=== PATIENT | female | born 1980 | race Caucasian/White ===

== ENCOUNTER → 2018-04-30 17:51 | Outpatient (CLI) | payer OTHER, SELFPAY ==
[2018-05-07 11:54] LABS: HPV APTIMA, High Risk Negative (Negative)
== END ==
PROVIDERS: Referring Provider Obstetrics & Gynecology; Visit Provider Obstetrics & Gynecology
DX: Z12.4 Encounter for screening for malignant neoplasm of cervix (principal)
CPT/HCPCS: 88175; G0145

== ENCOUNTER → 2018-05-22 | Outpatient (CLI) | payer OTHER, SELFPAY ==
[2018-05-22 20:45] LABS: Chlamydia Trachomatis by PCR Negative (Negative); Neisserai gonorrhoeae by PCR Negative (Negative); Probe Check PASS; Sample Adequacy Control PASS; Specimen Processing Control PASS
== END | disposition home or self-care (01) ==
LOC: LABSPEC 16:37
PROVIDERS: Visit Provider Obstetrics & Gynecology
DX: Z11.3 Encounter for screening for infections with a predominantly sexual mode of transmission (principal)
CPT/HCPCS: 87491; 87591

== ENCOUNTER → 2020-02-17 | Outpatient (CLI) | payer OTHER, SELFPAY ==
[2020-02-22 18:39] LABS: HPV Reflexed? NOT INDICATED
== END | disposition home or self-care (01) ==
LOC: LABSPEC 15:32
PROVIDERS: Visit Provider Obstetrics & Gynecology
DX: Z12.4 Encounter for screening for malignant neoplasm of cervix (principal)
CPT/HCPCS: 88175; G0145

== ENCOUNTER → 2020-05-30 15:52 | Outpatient (CLI) | payer OTHER, SELFPAY ==
[2020-05-30 17:03] LABS: hCG Titer Quant., Serum < 1 mIU/mL (1-3)
== END ==
PROVIDERS: Visit Provider Student in an Organized Health Care Education/Training Program
DX: N92.5 Other specified irregular menstruation (principal)
CPT/HCPCS: 36415; 84702

== ENCOUNTER → 2022-07-17 | Outpatient (CLI) | payer OTHER, SELFPAY ==
[2022-07-17 11:37] LABS: Absolute Lymphocyte Count 1.43 X10^3/uL (0.83-4.51); Absolute Neutrophil Count 4.7 X10^3/uL (2.0-7.7); Basophil# 0.05 X10^3/uL; Basophil% 0.7 % (0-1); Eosinophil# 0.16 X10^3/uL; Eosinophils% 2.3 % (0-5); Hematocrit 38.5 % (37-47); Lymphocyte # 1.43 X10^3/ul (0.83-4.51); Lymphocyte % 20.9 % (19-41); Mean Corp Hgb Conc 33.8 g/dL (32-36); Mean Corpuscular Volume 94.8 fL (81-99); Mean Platelet Vol. 9.4 fl (6.2-12.0); Monocyte# 0.45 X10^3/uL; Monocyte% 6.6 % (0-10); NRBC Flagged by Analyzer 0 % (0-5); Neutrophil # 4.71 X10^3/uL (2.7-7.7); Neutrophil % 69.1 % (47-70); Platelet Count 292 K/mm3 (150-450); RBC Distribution Width CV 12.1 % (11.6-14.6); RBC Distribution Width SD 42.4 fl (35.1-43.9); Red Blood Count 4.06 M/mm3 (4.2-5.4); White Blood Count 6.8 K/mm3 (4.4-11.0)
[2022-07-17 11:58] LABS: hCG Titer Quant., Serum < 1 mIU/mL (1-3)
[2022-07-17 13:42] LABS: Estradiol 69.1 pg/mL; Luteinizing Hormone 2.1 mIU/mL; Prolactin 11.1 ng/mL; T4 Free Direct 0.88 ng/dL (0.76-1.46); Thyroid Stim Hormone (TSH) 2.68 uIU/mL (0.358-3.74)
== END | disposition home or self-care (01) ==
LOC: WOBLAB 10:30
PROVIDERS: Visit Provider Nurse Practitioner Women's Health
DX: N93.9 Abnormal uterine and vaginal bleeding, unspecified (principal)
CPT/HCPCS: 36415; 82670; 83001; 83002; 84146; 84439; 84443; 84702; 85025

== ENCOUNTER 2022-07-18 11:30 | Emergency (ER) | payer OTHER, SELFPAY ==
[2022-07-18 11:31] VITALS: BP 156/89; PULSE 62; RESP 18; TEMP 36.4; O2SAT 100; BMI 29.7
--- NOTE | 2022-07-18 11:57 | EDS_ITS ---
HPI HPI - Female History of Present Illness Chief Complaint: Vag Bleeding Informant: patient Bleeding Issue: Positive for Vaginal bleeding; Negative for Passing tissue Onset: Days Context: Gradual Onset Timing: Continuous Current Severity: Mild and Similar to period Maximum Severity: Spotting and Similar to period Associated Symptoms Associated Symptoms: Negative for Dysuria or Frequency Test: Positive and Negative Narrative Narrative: 41-year-old female no seen past medical or surgical history. Currently on no medications. Said her menstrual periods have been irregular for the last several months. This 1 was early and she has been bleeding for the last 10 days. Saw her [employer] office and saw the nurse practitioner yesterday they did labs her CBC was unremarkable with a normal hemoglobin hematocrit. And a negative test. States today she is has bleeding still and may have had dark stool also. Denies any dysuria. No fever. States she just feels off. Prior similar symptoms: No Recent Illness/Hospitalization: No PFSH PFSH Medical History Contact dermatitis due to poison jazmin Scabies Home Medications permethrin 5 % topical cream (Elimite) 1 applic topical .twice 2 doses #60 grams 11/28/20 [Rx Last Taken Unknown] prednisone 10 mg tablet 10 mg PO DAILY #30 tabs 10/23/21 [Rx Last Taken Unknown] Allergy/AdvReac Type Severity Reaction Status Date / Time No Known Allergies Allergy Verified 07/18/22 11:31 Social History Smoking Status: Never smoker ROS ROS ED ROS Narrative Vaginal bleeding. Review of Systems ROS Unobtainable: Denies due to encephalopathy Constitutional Constitutional ED: Denies chills or fever(s) Eyes Eyes: Denies blurry vision ENT ENT ED: Denies ear pain Cardiovascular Cardiovascular: Denies chest pain Respiratory/Chest Respiratory/Chest: Denies cough or dyspnea Gastrointestinal Gastrointestinal: Denies abdominal pain Genitourinary Genitourinary ED: Denies dysuria Musculoskeletal Musculoskeletal: Denies arthralgias Integumentary Denies abscess Neurologic Neurologic: Denies headache(s) Psychiatric Psychiatric: Denies anxiety Endocrine Endocrinology: Denies heat intolerance Hematologic/Lymphatic Hematologic/Lymphatic: Denies easy bleeding Allergic/Immunologic Allergic/Immunologic ED: Denies mouth swelling EXAM Physical Exam Narrative Exam Narrative: Well-appearing 41-year-old female. Vital signs stable afebrile. She does not look septic toxic or in any distress. Pulse ox 100% on room air no hypoxia. H EENT exam unremarkable. Moist extremities. Neck nontender no JVD. No lymphadenopathy. Lungs clear to auscultation. Heart regular rhythm no murmur. Abdomen soft nontender. Moving all 4 extremities. Calves are nontender that edema or cords. Neurologically she is awake alert with no focal motor deficits. Benign exam. Const Vital Signs: 07/18/22 11:31 Temperature 97.6 F L Temperature Source Temporal Pulse Rate 62 Respiratory Rate 18 Blood Pressure 156/89 H Blood Pressure Mean 111 Pulse Ox 100 Oxygen Delivery Method Room Air Positive well nourished and well developed; Negative for cachectic, contractures or unkempt General Appearance ED: well developed and NAD; Negative for unkempt, cachectic, contractures or pallor Nutritional Appearance: Negative for cachectic HEENT Reports moist mucous membranes Negative for trauma or tenderness Eyes PERRL and EOMs intact bilaterally General Eye ED: Negative for pale conjunctiva or scleral icterus Neck no lymphadenopathy, supple and no JVD General: Negative for other Thyroid: Negative for tender Lymph Lymphatic: Negative for other Chest Wall inspection of chest normal and palpation of chest normal Chest: Negative for other Resp normal respiratory effort and clear to auscultation bilaterally Effort and Inspection: Negative for pain with movement Auscultation: Negative for rales, rhonchi or wheezes Cardio regular rate, regular rhythm, S1 normal heart sound, no murmurs and no JVD GI normal to inspection, nondistended, normoactive bowel sounds, soft to palpation, non-tender, non-distended and no masses Auscultation: normoactive bowel sounds Palpation: Negative for tender, guarding or rigid Back/Spine no CVA tenderness General Back: Negative for CVA tenderness Cervical Spine: Negative for cervical spine tenderness Thoracic Spine / Upper Back: Negative for thoracic spinal tenderness Lumbar Spine / Lower Back: Negative for lumbar spinal tenderness Sacrum: Negative for other Extremity normal to inspection and full ROM General Extremety ED: Negative for edema or tenderness General Extremity: Negative for edema Neuro oriented x3 and CN's II-XII intact bilaterally Sensorium / Orientation: alert, oriented to person, oriented to place and oriented to time; Negative for confused, lethargic or stuporous Motor Exam: strength 5/5 throughout; Negative for general weakness Psych mental status grossly normal Appearance: Negative for unkempt Attitude: No agitated Speech: No other Mood & Affect: Negative for depressed, anxious or tearful Skin no rashes or lesions noted and no wounds General Skin Exam: Negative for jaundice or pallor Rashes: No rashes noted Trauma: Negative for other MDM MDM MDM Narrative Medical decision making narrative: 41-year-old female with vaginal bleeding malaise. Benign exam. She was seen by nurse practitioner [employer] office yesterday had unremarkable CBC negative test and normal thyroid test. I will obtain a CBC again today and a CMP. Repeat exam patient is doing well at 12:59 PM. She will be discharged home with outpatient follow-up with her [employer] office. They have a ultrasound scheduled tomorrow. History & Record Review Discussion w/independent historian: Patient Lab Data Attestation: I reviewed the patient's lab results. Lab results narrative: CBC unremarkable white count 7.1 H&H 12.9 and 30.6 same as yesterday basically. Platelets 284. Electrolytes show a gap of 3. Normal BUN and creatinine. Liver enzymes are normal. I also reviewed her labs from yesterday and there is no significant change. She had a negative test. Negative thyroid test. Labs: Laboratory Results - last 24 hr 07/18/22 07/18/22 12:00 12:00 WBC 7.1 RBC 4.15 L Hgb 12.9 Hct 38.6 MCV 93.0 MCH 31.1 MCHC 33.4 RDW Std Deviation 41.5 RDW Coeff of Megan 12.1 Plt Count 284 MPV 9.1 Immature Gran % (Auto) 0.400 Neut % (Auto) 64.4 Lymph % (Auto) 25.1 Campbell % (Auto) 7.3 Eos % (Auto) 1.8 Baso % (Auto) 1.0 Absolute Neuts (auto) 4.6 Absolute Lymphs (auto) 1.78 Nucleated RBC % 0 Sodium 138 Potassium 4.0 Chloride 109 H Carbon Dioxide 26.0 Anion Gap 3 L BUN 12 Creatinine 0.59 Estim Creat Clear Calc 110.63 Est GFR (MDRD) Af Amer 143 Est GFR (MDRD) Non-Af 118 BUN/Creatinine Ratio 20.3 H Glucose 95 Calcium 8.4 L Total Bilirubin 0.40 AST 20 ALT 28 Alkaline Phosphatase 82 Total Protein 6.7 Albumin 3.6 Globulin 3.1 Albumin/Globulin Ratio 1.2 Discharge Plan Triage Chief Complaint: Vag Bleeding ED Provider: Hemant Lopez Dx/Rx/DC Orders Clinical Impression: Abnormal vaginal bleeding Prescriptions: No Action permethrin [Elimite] 5 % cream 1 applic topical .twice Qty: 60 0RF Rx Instructions: apply neck and below leaving on for 8-14 hours w/ 1/2 of tube then wash off; repeat in 8-10 days prednisone 10 mg tablet 10 mg PO DAILY Qty: 30 0RF Rx Instructions: 4 tablets daily for 3 days, then 3 tablets daily for 3 days, then 2 tablets daily for 3 days, then 1 tablet daily for 3 days Primary Care Provider: Care Physician,No Primary Referrals: Bea Gonzalez DO [Med Staff - Active Staff] - [facility] appointment Care Physician,No Primary [Primary Care Provider] - Activity Restrictions/Additional Instructions: Follow-up with your [employer] appointment tomorrow to get the ultrasound. Your blood counts and labs were unremarkable today as they were yesterday. Disposition Disposition: Home, Self Care
[2022-07-18 12:11] LABS: Absolute Lymphocyte Count 1.78 X10^3/uL (0.83-4.51); Absolute Neutrophil Count 4.6 X10^3/uL (2.0-7.7); Basophil# 0.07 X10^3/uL; Eosinophil# 0.13 X10^3/uL; Eosinophils% 1.8 % (0-5); Hematocrit 38.6 % (37-47); Hemoglobin 12.9 g/dL (12.0-15.0); Lymphocyte # 1.78 X10^3/ul (0.83-4.51); Lymphocyte % 25.1 % (19-41); Mean Corp Hgb Conc 33.4 g/dL (32-36); Mean Corpuscular Hgb 31.1 pg (27.0-32.0); Mean Platelet Vol. 9.1 fl (6.2-12.0); Monocyte# 0.52 X10^3/uL; Monocyte% 7.3 % (0-10); NRBC Flagged by Analyzer 0 % (0-5); Neutrophil # 4.57 X10^3/uL (2.7-7.7); Neutrophil % 64.4 % (47-70); Platelet Count 284 K/mm3 (150-450); RBC Distribution Width CV 12.1 % (11.6-14.6); RBC Distribution Width SD 41.5 fl (35.1-43.9); Red Blood Count 4.15 M/mm3 (4.2-5.4); White Blood Count 7.1 K/mm3 (4.4-11.0)
[2022-07-18 12:27] LABS: ALB/GLOB Ratio 1.2 RATIO (0.9-2.4); AST(SGOT) 20 U/L (15-37); Alanine Aminotransfer ALT/SGPT 28 U/L (13-56); Albumin, Serum 3.6 g/dL (3.2-5.0); Alkaline Phosphatase 82 U/L (45-117); Anion Gap 3 (5-15); BUN 12 mg/dL (7-18); BUN/Creat Ratio 20.3 RATIO (10-20); Calcium,Total 8.4 mg/dL (8.5-10.1); Chloride 109 mmol/L (98-107); Creatinine, Serum 0.59 mg/dL (0.55-1.02); EST Glomerular Filtration Rate 118 mL/min (>60); Est Glom Filt Rate - Afr Amer 143 mL/min (>60); Estimated Creatinine Clearance 110.63 ml/min; Globulin 3.1 g/dL (2.2-4.2); Glucose 95 mg/dL (74-106); Protein, Total 6.7 g/dL (6.4-8.2); Sodium Level 138 mmol/L (136-145)
[2022-07-18 13:07] VITALS: PULSE 72; RESP 16
== END 2022-07-18 13:07 | disposition home or self-care (01) ==
PROVIDERS: Emergency Provider Emergency Medicine; Visit Provider Emergency Medicine
DX: N93.9 Abnormal uterine and vaginal bleeding, unspecified (principal); N92.6 Irregular menstruation, unspecified
CPT/HCPCS: 80053; 85025; 99283

== ENCOUNTER → 2022-08-02 | Outpatient (CLI) | payer OTHER, SELFPAY ==
--- NOTE | 2022-08-02 | EMB_PTH ---
PATIENT: JEREMIAS BAIRD LOC: [facility] U#:[id number] AGE/SX: 41/F ROOM: RE08/02/[address]: Dr. 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 SJ:wendy 08/06/2022 COMMENT Case has been reviewed in consultation with Dr. Leong who concurs with the above diagnosis. IDC:AM MICROSCOPIC DESCRIPTION Slides are reviewed. GROSS DESCRIPTION Received in fixative is one container labeled with the patient's name and designated endometrial biopsy. The specimen consists of an elongated fragment of duarte tissue measuring 3.0 x 2.2 x 0.2 cm. The specimen is totally submitted in one cassette. / AM:wendy 08/03/2022 TC:5 CPT: 65104
== END | disposition home or self-care (01) ==
LOC: LABSPEC 16:26
PROVIDERS: Visit Provider Obstetrics & Gynecology
DX: N93.9 Abnormal uterine and vaginal bleeding, unspecified (principal)
CPT/HCPCS: 88305